=== PATIENT | female | born 1960 | race Caucasian/White ===

== ENCOUNTER 2019-09-23 04:32 | Inpatient (IN) ==
[2019-09-23] MEDS ORDERED: ONDANSETRON HCL/PF 2 MG/ML VIAL IV ONE ×2 (04:42→04:43)
--- NOTE | 2019-09-23 04:47 | ERNOTE ---
ER Female HPI Stated Complaint: uti Presenting Symptoms: other - weakness Time Seen by Provider: 09/23/19 04:37 Source: patient Exam Limitations: no limitations Immunizations: IMMUNIZATION HX Immunizations Up to Date Yes History of Influenza Vaccine Yes Hx Pneumococcal Vaccination No Allergies/Adverse Reactions: Allergies codeine Allergy (Verified 09/23/19 08:06) Hives morphine Allergy (Verified 09/23/19 08:06) Hives Home Medications: HOME MEDICATIONS Ciprofloxacin HCl [Cipro] 500 mg PO BID #27 tab 03/20/19 [Last Taken 09/22/19] Aspirin [[place] Aspirin EC] 81 mg PO DAILY 09/23/19 [Last Taken 09/22/19] Atorvastatin Calcium [Lipitor] 20 mg PO HS 09/23/19 [Last Taken 09/22/19] Insulin Glargine,Hum.rec.anlog [Lantus] 26 units SC HS 09/23/19 [Last Taken 09/22/19] metFORMIN HCL [Metformin HCl] 1,000 mg PO BID 09/23/19 [Last Taken 09/22/19] - History of Present Illness Narrative: Patient awoke this morning feeling hot she states her took her temperature and it was "102 something". She recently was treated with Keflex for a UTI and worsened after antibiotics ended. She saw her PCP again and started Cipro yesterday only getting in one dose last night Timing: Present: constant Quality: Present: moderate Activities at Onset: Present: sleep Prior Abdominal Problems: Present: similar symptoms Prior Treatment: Present: recently seen, treated by physician, currently on antibiotics Review of Systems - Review of Systems Constitutional: Present: See HPI, recent illness, fever, fatigue ENT: Absent: nose congestion, nasal drainage Respiratory: Absent: shortness of breath Cardiology: Absent: chest pain Gastrointestinal/Abdominal: Present: nausea Genitourinary: Present: frequency, dysuria Skin: Absent: rash Endocrine: Present: excessive sweating Medical History (Last Reviewed 09/23/19 @ 06:21 by Davion Shraif DO) Diabetes type 2, controlled On Lantus Hyperlipidemia Myocardial infarction Urinary tract infection Surgical History: Surgical History (Last Reviewed 09/23/19 @ 06:21 by Davion Sharif DO) H/O heart artery stent 5 cardiac stents History of cholecystectomy Family History: Family History (Last Reviewed 09/23/19 @ 06:21 by Davion Sharif DO) Mother Myocardial infarction Breast cancer Social History: (Last Reviewed 09/24/19 @ 02:14 by Davion Sharif DO) Social History: Marital status: Tobacco: Smoking Status: Never smoker Alcohol: alcohol intake: never Substance Use: substance use type: does not use Physical Exam - Physical Exam General Appearance: Present: wd/wn, alert, mild distress Head Exam: Present: normal inspection, no evidence of injury Neck: Present: normal inspection, nontender Respiratory: Present: no respiratory distress, no accessory muscle use, chest nontender, lungs clear Cardiovascular/Chest: Present: regular rate, rhythm, no murmur Gastrointestinal/Abdominal: Present: normal bowel sounds, nontender, nondistended, soft Neurological Exam: Present: alert, oriented, normal mood/affect Skin Exam: Present: normal color, warm/dry Lymphatic Exam: Present: no adenopathy Progress - Results and Orders Patient's Lab Results:: I have reviewed the patient's lab results. Results and Orders: Laboratory Tests 09/23/19 09/23/19 09/23/19 05:05 05:05 05:05 WBC 12.2 H Hgb 10.9 L Hct 34.9 L Plt Count 228 Neutrophils % 86.8 H Sodium 138 Potassium 4.1 Chloride 102 Carbon Dioxide 21.8 L Anion Gap 18.3 H Creatinine 1.11 Est GFR (Non-Af Amer) 54 L Random Glucose 165 H Lactic Acid, Venous 3.0 H* Calcium 9.2 Total Bilirubin 0.9 AST 20 ALT 23 Troponin I Less than 0.017 - Vital Signs Patient's Vital Signs:: I have reviewed the patient's vital signs. Vital Signs: Vital Signs 09/23/19 04:36 Temperature 37.6 C Pulse Rate 62 Respiratory Rate 12 Blood Pressure 111/49 O2 Sat by Pulse Oximetry 98 - EKG EKG #1 EKG: NSR EKG read: Interp. by me - Progress/Reassessment Chief Complaint: Genitourinary Problem Progress:: Improved Progress Note-Subjective: 09/23/19 06:[address] Ross she agrees with admission. Departure Clinical Impression: Pyelonephritis - Departure Disposition: Still a patient Condition: Fair
[2019-09-23 05:10] LABS: Hematocrit 34.9 % (37.0-47.0); Hemoglobin 10.9 gm/dL (12.5-16.0); Mean Cell Volume 89.5 fl (78-100); Mean Corpuscular Hemoglobin 27.9 pg (27-31); Mean Corpuscular Hgb Conc 31.2 g/dl (32-36); Mean Platelet Volume 9.9 fl (8-12.5); Neutrophil # 10.6 K/mm3 (1.3-6.0); Neutrophil % 86.8 % (42-75.0); Platelet Count 228 K/mm3 (150-450); Red Cell Distribution Width 13.1 % (11.5-14.0); White Blood Count 12.2 K/mm3 (4.0-10.5)
[2019-09-23 05:28] LABS: ALT 23 U/L (19-67); AST 20 U/L (0-48); Albumin * 3.5 gm/dl (3.4-5.0); Alkaline Phosphatase * 103 U/L (50-170); Anion Gap 18.3 mmol/L (6.8-13.8); BUN/Creatinine Ratio 20.7 (9.0-21.6); Bilirubin, Total 0.9 mg/dL (0.0-1.1); Blood Urea Nitrogen 23 mg/dL (3-23); Ca. Corrected For Albumin 9.3 mg/dL (8.4-10.2); Calcium * 9.2 mg/dL (7.9-10.9); Carbon Dioxide 21.8 mmol/L (24-32.6); Chloride 102 mmol/L (97-106); Glucose * 165 mg/dL (70-110); Potassium 4.1 mmol/L (3.4-4.6); Sodium 138 mmol/L (132-142); Total Protein 8.1 gm/dL (6.2-8.2); Troponin I Less than 0.017 ng/mL (0.00-0.10)
[2019-09-23] MEDS ORDERED: NORMAL SALINE 1,000 ML IV ONE (05:33)
[2019-09-23] MEDS: CIPROFLOXACIN IN 5 % DEXTROSE 400 MG/200 ML BAG IV SCH ×2 (06:48→18:46)
[2019-09-23 06:55] LABS: Urine Appearance Cloudy (CLEAR); Urine Bacteria 3+; Urine Bilirubin Negative (NEGATIVE); Urine Blood 250 /ul (NEGATIVE); Urine Color Yellow; Urine Ketone 5 mg/dL (NEGATIVE); Urine Nitrite Positive (NEGATIVE); Urine Protein 30 mg/dL (NEGATIVE); Urine Specific Gravity >=1.030 SP.GR. (1.005-1.010); Urine Urobilinogen Normal (NORMAL); Urine WBC >50 /hpf (0-5)
[2019-09-23] MEDS: ASPIRIN 81 MG TABLET.DR PO SCH (09:27)
[2019-09-23] MEDS: NORMAL SALINE 1,000 ML IV PRN ×3 (09:27→21:11)
[2019-09-23] MEDS: GABAPENTIN 100 MG CAPSULE PO SCH ×2 (09:27→21:28)
[2019-09-23 09:54] LABS: Urine Bilirubin Negative (NEGATIVE); Urine Blood 25 /ul (NEGATIVE); Urine Ketone Negative (NEGATIVE); Urine Protein 30 mg/dL (NEGATIVE); Urine Specific Gravity >=1.030 SP.GR. (1.005-1.010); Urine Urobilinogen Normal (NORMAL); Urine pH 5.5 pH (5.0-7.0)
--- NOTE | 2019-09-23 09:58 | HP ---
Chief Complaint - Chief Complaint Date of Service: 09/23/19 Time of Service: 08:40 Chief Complaint: Frequent urination, pain with urination and weakness History of Present Illness: 59-year-old female with a past medical history of diabetes mellitus type 2 on insulin, hyperlipidemia, myocardial infarct, and peripheral neuropathy, UTI presents from home with complaints of pain with urination, frequent urination and weakness. Symptoms began about 10 days ago when she was seen by her primary care provider. She was started on antibiotics for 7 days. She states symptoms resolved but then started again yesterday. She contacted her primary care provider and was started on a different antibiotic, ciprofloxacin. Overnight she woke up to use the bathroom and felt weak, her got up to help her and she passed out on the floor. EMS was called and she was brought to the emergency department. On presentation she was found to have a fever of 38.2, tachycardia in the low 100s, leukocytosis of 12,000, lactic acid of 3 and p ositive UA. She was started on IV ciprofloxacin and IV fluids. She was admitted for pyelonephritis. Medical History (Last Updated 09/23/19 @ 08:27 by Bertha Brennan RN) Diabetes type 2, controlled On Lantus Hyperlipidemia Myocardial infarction Neuropathy Urinary tract infection Surgical History: Surgical History (Last Updated 09/23/19 @ 08:07 by Bertha Brennan RN) H/O heart artery stent 5 cardiac stents History of cholecystectomy Hx of cataract surgery Family History: Family History (Last Reviewed 09/23/19 @ 08:07 by Bertha Brennan RN) Mother Breast cancer Myocardial infarction Social History: (Last Updated 09/23/19 @ 08:09 by Bertha Brennan RN) Social History: Marital status: Tobacco: Smoking Status: Never smoker Alcohol: alcohol intake: never Substance Use: substance use type: does not use Review Of Systems (GEN) - Review of Systems Generalized/Overall Review: Present: Fever Respiratory: Absent: Shortness of Breath Cardiac: Absent: Chest Pain Abdominal: Present: Abdominal Pain - Suprapubic Genitourinary: Present: Burning, Frequency, Incontinent - She had 1 episode of urinary incontinence early this morning Neurological: Present: Parasthesia - Left foot Misc: All systems neg except as marked Immunizations: IMMUNIZATION HX Immunizations Up to Date Yes History of Influenza Vaccine Yes Hx Pneumococcal Vaccination No Allergies/Adverse Reactions: Allergies Allergy/AdvReac Type Severity Reaction Status Date / Time codeine Allergy Hives Verified 09/23/19 08:06 morphine Allergy Hives Verified 09/23/19 08:06 Home Medications: HOME MEDICATIONS Ciprofloxacin HCl [Cipro] 500 mg PO BID #27 tab 03/20/19 [Last Taken 09/22/19] Aspirin [[place] Aspirin EC] 81 mg PO DAILY 09/23/19 [Last Taken 09/22/19] Atorvastatin Calcium [Lipitor] 20 mg PO HS 09/23/19 [Last Taken 09/22/19] Insulin Glargine,Hum.rec.anlog [Lantus] 26 units SC HS 09/23/19 [Last Taken 09/22/19] metFORMIN HCL [Metformin HCl] 1,000 mg PO BID 09/23/19 [Last Taken 09/22/19] Exam - Exam Vital Signs: Vital Signs - Last Taken Temp 38 C 09/23/19 08:09 Pulse 105 H 09/23/19 08:09 Resp 18 09/23/19 08:09 BP 130/70 09/23/19 08:09 Pulse Ox 95 09/23/19 08:09 Constitutional: Present: Alert, Cooperative, Well developed, Well nourished, No distress, Middle aged, Obese ENT Exam: Present: hearing grossly normal, moist mucous membranes Eye Exam: bilateral eye: normal inspection, PERRL, EOMI Neck: Present: non-tender. Absent: lymphadenopathy (R), lymphadenopathy (L) Back Exam: Present: normal inspection, no CVA tenderness, no vertebral tenderness Respiratory: Present: lungs clear, no respiratory distress, no accessory muscle use, No wheezing. Absent: crackles, rhonchi Cardiovascular/Chest: Present: normal peripheral pulses, no edema, no murmur, tachycardia Peripheral Pulses: dorsalis-pedis (R): 1+, dorsalis-pedis (L): 1+ Abdomen: Present: Normal bowel sounds, soft, obese, suprapubic tenderness Extremity: Present: no pedal edema Skin Exam: Present: normal color, warm/dry Neurologic: Present: alert, normal mood/affect Appearance: Present: appropriate appearance, appropriate insight Eye contact: Present: cooperative Thoughts: Present: normal thought pattern, normal mood /affect Diagnostic Studies: Abnormal Lab Results 09/23/19 09/23/19 09/23/19 Range/Units 05:05 05:05 05:05 WBC 12.2 H (4.0-10.5) K/mm3 RBC 3.90 L (4.2-5.4) M/mm3 Hgb 10.9 L (12.5-16.0) gm/dL Hct 34.9 L (37.0-47.0) % MCHC 31.2 L (32-36) g/dl Immature Gran # (Auto) 0.04 H (0.000-0.0310) K/mm3 Neutrophils % 86.8 H (42-75.0) % Lymphocytes % 7.1 L (20-51) % Neutrophils # 10.6 H (1.3-6.0) K/mm3 Lymphocytes # 0.87 L (1.5-3.5) k/mm3 Carbon Dioxide 21.8 L (24-32.6) mmol/L Anion Gap 18.3 H (6.8-13.8) mmol/L Est GFR (Non-Af Amer) 54 L (60-130) mL/min Random Glucose 165 H (70-110) mg/dL Lactic Acid, Venous 3.0 H* (0.4-2.0) mmol/L Urine Protein (NEGATIVE) mg/dL Urine Blood (NEGATIVE) /ul Urine Nitrate (NEGATIVE) Prot Sulfosalicylic Acd (0) mg/dL Ur Leukocyte Esterase (NEGATIVE) /ul Urine RBC (0-5) /hpf Urine WBC (0-5) /hpf Ur Epithelial Cells (0-5) /hpf Urine Bacteria (NONE) 09/23/19 09/23/19 Range/Units 06:45 08:30 WBC (4.0-10.5) K/mm3 RBC (4.2-5.4) M/mm3 Hgb (12.5-16.0) gm/dL Hct (37.0-47.0) % MCHC (32-36) g/dl Immature Gran # (Auto) (0.000-0.0310) K/mm3 Neutrophils % (42-75.0) % Lymphocytes % (20-51) % Neutrophils # (1.3-6.0) K/mm3 Lymphocytes # (1.5-3.5) k/mm3 Carbon Dioxide (24-32.6) mmol/L Anion Gap (6.8-13.8) mmol/L Est GFR (Non-Af Amer) (60-130) mL/min Random Glucose (70-110) mg/dL Lactic Acid, Venous 3.4 H* (0.4-2.0) mmol/L Urine Protein 30 H (NEGATIVE) mg/dL Urine Blood 250 H (NEGATIVE) /ul Urine Nitrate Positive H (NEGATIVE) Prot Sulfosalicylic Acd 4+ H (0) mg/dL Ur Leukocyte Esterase 500 H (NEGATIVE) /ul Urine RBC 10-25 H (0-5) /hpf Urine WBC >50 H (0-5) /hpf Ur Epithelial Cells 10-25 H (0-5) /hpf Urine Bacteria 3+ H (NONE) Laboratory Results WBC 12.2 K/mm3 (4.0-10.5) H 09/23/19 05:05 RBC 3.90 M/mm3 (4.2-5.4) L 09/23/19 05:05 Hgb 10.9 gm/dL (12.5-16.0) L 09/23/19 05:05 Hct 34.9 % (37.0-47.0) L 09/23/19 05:05 MCV 89.5 fl (78-100) 09/23/19 05:05 MCH 27.9 pg (27-31) 09/23/19 05:05 MCHC 31.2 g/dl (32-36) L 09/23/19 05:05 RDW 13.1 % (11.5-14.0) 09/23/19 05:05 Plt Count 228 K/mm3 (150-450) 09/23/19 05:05 MPV 9.9 fl (8-12.5) 09/23/19 05:05 Immature Gran % (Auto) 0.30 % (0.001-0.429) 09/23/19 05:05 Immature Gran # (Auto) 0.04 K/mm3 (0.000-0.0310) H 09/23/19 05:05 Neutrophils % 86.8 % (42-75.0) H 09/23/19 05:05 Lymphocytes % 7.1 % (20-51) L 09/23/19 05:05 Monocytes % 4.7 % (0.0-9) 09/23/19 05:05 Eosinophils % 0.8 % (0.0-3.0) 09/23/19 05:05 Basophils % 0.3 % (0.0-1.0) 09/23/19 05:05 Nucleated RBC % 0.0 k/mm3 (0-1) 09/23/19 05:05 Neutrophils # 10.6 K/mm3 (1.3-6.0) H 09/23/19 05:05 Lymphocytes # 0.87 k/mm3 (1.5-3.5) L 09/23/19 05:05 Monocytes # 0.6 k/mm3 (0.0-1.0) 09/23/19 05:05 Eosinophils # 0.1 k/mm3 (0.0-0.7) 09/23/19 05:05 Absolute Basophils 0.0 k/mm3 (0.0-0.1) 09/23/19 05:05 Sodium 138 mmol/L (132-142) 09/23/19 05:05 Plasma Sodium 139 mmol/L (130-142) 09/23/19 05:05 Potassium 4.1 mmol/L (3.4-4.6) 09/23/19 05:05 Chloride 102 mmol/L (97-106) 09/23/19 05:05 Carbon Dioxide 21.8 mmol/L (24-32.6) L 09/23/19 05:05 Anion Gap 18.3 mmol/L (6.8-13.8) H 09/23/19 05:05 BUN 23 mg/dL (3-23) 09/23/19 05:05 Creatinine 1.11 mg/dL (0.4-1.4) 09/23/19 05:05 Est GFR (Non-Af Amer) 54 mL/min (60-130) L 09/23/19 05:05 BUN/Creatinine Ratio 20.7 (9.0-21.6) 09/23/19 05:05 Random Glucose 165 mg/dL (70-110) H 09/23/19 05:05 Lactic Acid, Venous 3.4 mmol/L (0.4-2.0) H* 09/23/19 08:30 Calcium 9.2 mg/dL (7.9-10.9) 09/23/19 05:05 Calcium Adj for Albumin 9.3 mg/dL (8.4-10.2) 09/23/19 05:05 Total Bilirubin 0.9 mg/dL (0.0-1.1) 09/23/19 05:05 AST 20 U/L (0-48) 09/23/19 05:05 ALT 23 U/L (19-67) 09/23/19 05:05 Alkaline Phosphatase 103 U/L (50-170) 09/23/19 05:05 Troponin I Less than 0.017 ng/mL (0.00-0.10) 09/23/19 05:05 Total Protein 8.1 gm/dL (6.2-8.2) 09/23/19 05:05 Albumin 3.5 gm/dl (3.4-5.0) 09/23/19 05:05 Urine Color Yellow 09/23/19 06:45 Urine Appearance Cloudy (CLEAR) 09/23/19 06:45 Urine pH 5.0 pH (5.0-7.0) 09/23/19 06:45 Ur Specific [place] >=1.030 SP.GR. (1.005-1.010) 09/23/19 06:45 Urine Protein 30 mg/dL (NEGATIVE) H 09/23/19 06:45 Urine Glucose (UA) Negative mg/dL (NEGATIVE) 09/23/19 06:45 Urine Ketones 5 mg/dL (NEGATIVE) 09/23/19 06:45 Urine Blood 250 /ul (NEGATIVE) H 09/23/19 06:45 Urine Nitrate Positive (NEGATIVE) H 09/23/19 06:45 Urine Bilirubin Negative mg/dl (NEGATIVE) 09/23/19 06:45 Prot Sulfosalicylic Acd 4+ mg/dL (0) H 09/23/19 06:45 Urine Urobilinogen Normal EU/dl (NORMAL) 09/23/19 06:45 Ur Leukocyte Esterase 500 /ul (NEGATIVE) H 09/23/19 06:45 Urine RBC 10-25 /hpf (0-5) H 09/23/19 06:45 Urine WBC >50 /hpf (0-5) H 09/23/19 06:45 Ur Epithelial Cells 10-25 /hpf (0-5) H 09/23/19 06:45 Urine Bacteria 3+ (NONE) H 09/23/19 06:45 Urine Culture Comments Culture to follow 09/23/19 06:45 Assessment/Plan - Narrative Narrative: 59-year-old female with a past medical history of diabetes mellitus type 2 on insulin, hyperlipidemia, myocardial infarct, and peripheral neuropathy, UTI presents from home with complaints of pain with urination, frequent urination and weakness. On presentation she was found to have a fever of 38.2, tachycardia in the low 100s, leukocytosis of 12,000, lactic acid of 3 and positive UA. She was started on IV ciprofloxacin and IV fluids. She was admitted for pyelonephritis. Her lactic acid has gone up from 3-3.4 this morning. She only received 1 bag of IV fluids in the ER so I will resume IV fluids. Plan #1 continue with ciprofloxacin 400 mg IV every 12 hours. Awaiting urine culture results #2 I will restart the IV fluids with normal saline at 150 cc/h #3 I will start her on gabapentin 100 mg twice a day for her left foot neuropathy #4 resume home medications for comorbidities #5 CBC and CMP in the morning #6 DVT prophylaxis with Lovenox #7 start gabapentin 100 mg twice a day for her peripheral neuropathy - Assessment/Plan (1) Pyelonephritis Problem: Acute (2) Diabetes mellitus type 2 in obese Problem: Acute (3) Peripheral neuropathy Problem: Acute (4) CAD (coronary artery disease) Problem: Acute (5) Hyperlipidemia Problem: Acute (6) Sepsis Problem: Acute
[2019-09-23 10:15] LABS: Urine Color Yellow; Urine Nitrite Positive (NEGATIVE)
[2019-09-23 10:16] LABS: Urine Appearance Clear (CLEAR); Urine Bacteria 2+; Urine RBC 0-5 /hpf (0-5); Urine WBC 25-50 /hpf (0-5)
[2019-09-23] MEDS: ENOXAPARIN SODIUM 40 MG/0.4 ML SYRG SC SCH (10:44)
[2019-09-23] MEDS: ACETAMINOPHEN 325 MG TABLET PO PRN ×2 (13:20→19:31)
[2019-09-23] MEDS: INSULIN GLARGINE,HUM.REC.ANLOG 100 UNITS/ML VIAL SC SCH (21:25)
[2019-09-23] MEDS: ROSUVASTATIN CALCIUM 10 MG TABLET PO SCH (21:28)
[2019-09-24] MEDS: NORMAL SALINE 1,000 ML IV PRN ×2 (01:26→05:45)
[2019-09-24 06:45] LABS: Hematocrit 29.9 % (37.0-47.0); Hemoglobin 9.3 gm/dL (12.5-16.0); Mean Cell Volume 90.1 fl (78-100); Mean Corpuscular Hgb Conc 31.1 g/dl (32-36); Mean Platelet Volume 9.5 fl (8-12.5); Neutrophil # 3.8 K/mm3 (1.3-6.0); Neutrophil % 68.8 % (42-75.0); Platelet Count 180 K/mm3 (150-450); Red Blood Count 3.32 M/mm3 (4.2-5.4); Red Cell Distribution Width 13.1 % (11.5-14.0); White Blood Count 5.6 K/mm3 (4.0-10.5)
[2019-09-24] MEDS: CIPROFLOXACIN IN 5 % DEXTROSE 400 MG/200 ML BAG IV SCH (06:46)
[2019-09-24 07:08] LABS: Albumin * 2.8 gm/dl (3.4-5.0); Anion Gap 14.1 mmol/L (6.8-13.8); BUN/Creatinine Ratio 18.8 (9.0-21.6); Bilirubin, Total 0.4 mg/dL (0.0-1.1); Ca. Corrected For Albumin 8.4 mg/dL (8.4-10.2); Calcium * 7.8 mg/dL (7.9-10.9); Carbon Dioxide 22.8 mmol/L (24-32.6); Potassium 3.9 mmol/L (3.4-4.6); Total Protein 6.8 gm/dL (6.2-8.2)
[2019-09-24] MEDS: ENOXAPARIN SODIUM 40 MG/0.4 ML SYRG SC SCH (09:00)
[2019-09-24] MEDS: GABAPENTIN 100 MG CAPSULE PO SCH ×2 (09:01→21:08)
[2019-09-24] MEDS: ASPIRIN 81 MG TABLET.DR PO SCH (09:01)
--- NOTE | 2019-09-24 11:19 | PN ---
Subjective - Date and Time Seen Date: 09/24/19 Time: 09:12 Subjective Narrative: She states she feels much better today. Denies any fevers. Denies pain with urination. She is tolerating her diet. Denies pain in her legs. She feels stronger today and is ambulating Objective - Review of Systems Generalized/Overall Review: Denies: Chills, Fever Respiratory: Denies: Shortness of Breath Cardiac: Denies: Chest Pain Abdominal: Denies: Abdominal Pain Genitourinary Symptoms: Denies: Dysuria Musculoskeletal Complaints: Denies: Joint Pain Neurological: Denies: Parasthesia - Denies paresthesias in her feet Misc: All systems neg except as marked - Vitals Vitals: Last Vital Signs Temp 37.2 C 09/24/19 06:42 Pulse 82 09/24/19 06:42 Resp 16 09/24/19 06:42 BP 129/68 09/24/19 06:42 Pulse Ox 94 09/24/19 06:42 - Abnormal Lab Findings Abnormal Lab Findings: Abnormal Lab Results 09/23/19 09/24/19 09/24/19 Range/Units 14:39 06:00 06:00 RBC 3.32 L (4.2-5.4) M/mm3 Hgb 9.3 L (12.5-16.0) gm/dL Hct 29.9 L (37.0-47.0) % MCHC 31.1 L (32-36) g/dl Lymphocytes # 1.20 L (1.5-3.5) k/mm3 Chloride 108 H (97-106) mmol/L Carbon Dioxide 22.8 L (24-32.6) mmol/L Anion Gap 14.1 H (6.8-13.8) mmol/L Random Glucose 122 H (70-110) mg/dL Lactic Acid, Venous 3.3 H* (0.4-2.0) mmol/L Calcium 7.8 L (7.9-10.9) mg/dL Albumin 2.8 L (3.4-5.0) gm/dl - Exam Constitutional: Present: Alert, Cooperative, Well developed, Well nourished, Middle aged, Obese ENT Exam: Present: hearing grossly normal Neck: Present: non-tender, supple. Absent: lymphadenopathy (R), lymphadenopathy (L) Respiratory: Present: lungs clear, no respiratory distress, no accessory muscle use, No wheezing. Absent: crackles, rhonchi Cardiovascular/Chest: Present: normal peripheral pulses, regular rate, rhythm, no edema, no murmur Abdomen: Present: Normal bowel sounds, soft, nontender Extremity: Present: no pedal edema Skin Exam: Present: normal color, warm/dry Neurologic: Present: alert, normal mood/affect Appearance: Present: appropriate appearance, appropriate insight Eye contact: Present: cooperative Thoughts: Present: normal thought pattern, normal mood /affect Assessment/Plan Plan Narrative: 59-year-old female with a past medical history of diabetes mellitus type 2 on insulin, hyperlipidemia, myocardial infarct, and peripheral neuropathy, UTI presents from home with complaints of pain with urination, frequent urination and weakness. On presentation she was found to have a fever of 38.2, tachyc ardia in the low 100s, leukocytosis of 12,000, lactic acid of 3 and positive UA. She was started on IV ciprofloxacin and IV fluids. She was admitted for pyelonephritis. Her lactic acid has normalized this morning. Preliminary urine cultures show no growth. I will transition her to ciprofloxacin 500 mg orally twice daily. Cultures may be negative because of treatment with antibiotics prior to obtaining the urine sample. Plan #1 continue with ciprofloxacin day 2. I will transition her to ciprofloxacin 500 mg orally twice daily. Discontinue IV ciprofloxacin. #2 I will restart stop IV fluids #3 Continue with gabapentin 100 mg twice a day for her left foot neuropathy #4 Continue with home medications for comorbidities #5 CBC and CMP in the morning #6 DVT prophylaxis with Lovenox - Problems/Diagnosis (1) Pyelonephritis Problem: Acute (2) Diabetes mellitus type 2 in obese Problem: Acute (3) Peripheral neuropathy Problem: Acute (4) CAD (coronary artery disease) Problem: Acute (5) Hyperlipidemia Problem: Acute (6) Sepsis Problem: Acute
[2019-09-24] MEDS: CIPROFLOXACIN HCL 500 MG TABLET PO SCH (21:08)
[2019-09-24] MEDS: ROSUVASTATIN CALCIUM 10 MG TABLET PO SCH (21:08)
[2019-09-24] MEDS: INSULIN GLARGINE,HUM.REC.ANLOG 100 UNITS/ML VIAL SC SCH (21:08)
[2019-09-25] MEDS: ACETAMINOPHEN 325 MG TABLET PO PRN (02:48)
[2019-09-25 06:32] LABS: Hematocrit 29.8 % (37.0-47.0); Hemoglobin 9.4 gm/dL (12.5-16.0); Mean Cell Volume 88.4 fl (78-100); Mean Corpuscular Hemoglobin 27.9 pg (27-31); Mean Corpuscular Hgb Conc 31.5 g/dl (32-36); Mean Platelet Volume 9.6 fl (8-12.5); Neutrophil # 2.8 K/mm3 (1.3-6.0); Platelet Count 194 K/mm3 (150-450); Red Blood Count 3.37 M/mm3 (4.2-5.4); White Blood Count 5.8 K/mm3 (4.0-10.5)
[2019-09-25 06:46] LABS: Anion Gap 11.9 mmol/L (6.8-13.8); BUN/Creatinine Ratio 15.3 (9.0-21.6); Bilirubin, Total 0.3 mg/dL (0.0-1.1); Ca. Corrected For Albumin 9.1 mg/dL (8.4-10.2); Calcium * 8.6 mg/dL (7.9-10.9); Carbon Dioxide 25.9 mmol/L (24-32.6); Potassium 3.8 mmol/L (3.4-4.6); Total Protein 7.2 gm/dL (6.2-8.2)
[2019-09-25] MEDS: GABAPENTIN 100 MG CAPSULE PO SCH (08:26)
[2019-09-25] MEDS: ASPIRIN 81 MG TABLET.DR PO SCH (08:26)
[2019-09-25] MEDS: CIPROFLOXACIN HCL 500 MG TABLET PO SCH (08:27)
--- NOTE | 2019-09-25 09:32 | DS ---
(1) Pyelonephritis Problem: Acute (2) Diabetes mellitus type 2 in obese Problem: Chronic (3) Peripheral neuropathy Problem: Acute (4) CAD (coronary artery disease) Problem: Chronic (5) Hyperlipidemia Problem: Chronic (6) Sepsis Problem: Resolved Hospital Course: 59-year-old female with a past medical history of diabetes mellitus type 2 on insulin, hyperlipidemia, myocardial infarct, and peripheral neuropathy, UTI presents from home with complaints of pain with urination, frequent urination and weakness. On presentation she was found to have a fever of 38.2, tachycardia in the low 100s, leukocytosis of 12,000, lactic acid of 3 and positive UA. She was started on IV ciprofloxacin and IV fluids. She was admitted for pyelonephritis. She improved during hospitalization. She defervesced, tolerated diet and had no more pain with urination or back pain. Her lactic acid has normalized with IV fluids. Final urine cultures show no growth. Cultures may be negative because of treatment with antibiotics prior to obtaining the urine sample. She will need to complete a course of ciprofloxacin 500 mg twice a day for total of 7 days. She will need to take ciprofloxacin for 5 more days. She states she already has the medication at home so does not need a refill. She also had complained of paresthesias in her feet. She was started on gabapentin 100 mg twice a day with significant improvement of her pain. She is aware that gabapentin can cause sleepiness or dizziness and she should be very careful while on this medication. I will send her home with a temporary prescription for gabapentin and she will follow-up with her primary care provider for refills. She does need to see her primary care provider in 1-2 weeks of discharge. Procedures Performed: none Results and Findings: Pending Mircobiology Results 09/23/19 06:40 Blood Blood Culture - Preliminary NO GROWTH AFTER 48 HOURS 09/23/19 05:25 Blood Blood Culture - Preliminary NO GROWTH AFTER 48 HOURS Lab Pending Results 09/23/19 05:05: WBC 12.2 H, RBC 3.90 L, Hgb 10.9 L, Hct 34.9 L, MCV 89.5, MCH 27.9, MCHC 31.2 L, RDW 13.1, Plt Count 228, MPV 9.9, Immature Gran % (Auto) 0.30, Immature Gran # (Auto) 0.04 H, Neutrophils % 86.8 H, Lymphocytes % 7.1 L, Monocytes % 4.7, Eosinophils % 0.8, Basophils % 0.3, Nucleated RBC % 0.0, Neutrophils # 10.6 H, Lymphocytes # 0.87 L, Monocytes # 0.6, Eosinophils # 0.1, Absolute Basophils 0.0 09/23/19 05:05: Sodium 138, Plasma Sodium 139, Potassium 4.1, Chloride 102, Carbon Dioxide 21.8 L, Anion Gap 18.3 H, BUN 23, Creatinine 1.11, Est GFR (Non- Af Amer) 54 L, BUN/Creatinine Ratio 20.7, Random Glucose 165 H, Calcium 9.2, Calcium Adj for Albumin 9.3, Total Bilirubin 0.9, AST 20, ALT 23, Alkaline Phosphatase 103, Troponin I Less than 0.017, Total Protein 8.1, Albumin 3.5 09/23/19 05:05: Lactic Acid, Venous 3.0 H* 09/23/19 06:45: Urine Color Yellow, Urine Appearance Cloudy, Urine pH 5.0, Ur Specific [place] >=1.030, Urine Protein 30 H, Urine Glucose (UA) Negative, Urine Ketones 5, Urine Blood 250 H, Urine Nitrate Positive H, Urine Bilirubin Negative, Prot Sulfosalicylic Acd 4+ H, Urine Urobilinogen Normal, Ur Leukocyte Esterase 500 H, Urine RBC 10-25 H, Urine WBC >50 H, Ur Epithelial Cells 10-25 H, Urine Bacteria 3+ H, Urine Culture Comments Culture to follow 09/23/19 08:30: Lactic Acid, Venous 3.4 H* 09/23/19 09:40: Urine Color Yellow, Urine Appearance Clear, Urine pH 5.5, Ur Specific [place] >=1.030, Urine Protein 30 H, Urine Glucose (UA) 250 H, Urine Ketones Negative, Urine Blood 25 H, Urine Nitrate Positive H, Urine Bilirubin Negative, Prot Sulfosalicylic Acd 2+ H, Urine Urobilinogen Normal, Ur Leukocyte Esterase 75 H, Urine RBC 0-5, Urine WBC 25-50 H, Ur Epithelial Cells Trace, Urine Bacteria 2+ H, Urine Culture Comments Culture to follow 09/23/19 14:39: Lactic Acid, Venous 3.3 H* 09/24/19 06:00: WBC 5.6 D, RBC 3.32 L, Hgb 9.3 L, Hct 29.9 L, MCV 90.1, MCH 28.0, MCHC 31.1 L, RDW 13.1, Plt Count 180, MPV 9.5, Immature Gran % (Auto) 0.40, Immature Gran # (Auto) 0.02, Neutrophils % 68.8, Lymphocytes % 21.5, Monocytes % 6.6, Eosinophils % 2.2, Basophils % 0.5, Nucleated RBC % 0.0, Neutrophils # 3.8, Lymphocytes # 1.20 L, Monocytes # 0.4, Eosinophils # 0.1, Absolute Basophils 0.0 09/24/19 06:00: Sodium 141, Plasma Sodium 141, Potassium 3.9, Chloride 108 H, Carbon Dioxide 22.8 L, Anion Gap 14.1 H, BUN 16, Creatinine 0.85, Est GFR (Non- Af Amer) 73 D, BUN/Creatinine Ratio 18.8, Random Glucose 122 H, Calcium 7.8 L, Calcium Adj for Albumin 8.4, Total Bilirubin 0.4, AST 22, ALT 27, Alkaline Phosphatase 74, Total Protein 6.8, Albumin 2.8 L 09/24/19 06:00: Lactic Acid, Venous 0.9 09/25/19 06:26: WBC 5.8, RBC 3.37 L, Hgb 9.4 L, Hct 29.8 L, MCV 88.4, MCH 27.9, MCHC 31.5 L, RDW 13.0, Plt Count 194, MPV 9.6, Immature Gran % (Auto) 0.50 H, Immature Gran # (Auto) 0.03, Neutrophils % 48.0, Lymphocytes % 34.5, Monocytes % 9.7 H, Eosinophils % 6.8 H, Basophils % 0.5, Nucleated RBC % 0.0, Neutrophils # 2.8, Lymphocytes # 1.99, Monocytes # 0.6, Eosinophils # 0.4, Absolute Basophils 0.0 09/25/19 06:26: Sodium 141, Plasma Sodium 141, Potassium 3.8, Chloride 107 H, Carbon Dioxide 25.9, Anion Gap 11.9, BUN 13, Creatinine 0.85, Est GFR (Non-Af Amer) 73, BUN/Creatinine Ratio 15.3, Random Glucose 111 H, Calcium 8.6, Calcium Adj for Albumin 9.1, Total Bilirubin 0.3, AST 22, ALT 29, Alkaline Phosphatase 77, Total Protein 7.2, Albumin 3.0 L Discharge Location: Home Disposition: Home self-care Condition: Fair Discharge Activity: Activity as tolerated Discharge Diet: Consistent carbs Referrals: Pamela Obrien PAC [Primary Care Provider] - Prescriptions (Any new or edited meds): Gabapentin [Neurontin] 100 mg PO BID #28 cap Transmission Status: Pending to [place], [place] Complete Home Medications List: Complete Home Medication List: Ciprofloxacin HCl [Cipro] 500 mg PO BID #27 tab 03/20/19 Aspirin [[place] Aspirin EC] 81 mg PO DAILY 09/23/19 Atorvastatin Calcium [Lipitor] 20 mg PO HS 09/23/19 Insulin Glargine,Hum.rec.anlog [Lantus] 26 units SC HS 09/23/19 metFORMIN HCL [Metformin HCl] 1,000 mg PO BID 09/23/19 Gabapentin [Neurontin] 100 mg PO BID #28 cap 09/25/19
[2019-09-25 12:10] VITALS: BP 126/71
== END 2019-09-25 12:30 | disposition home or self-care (01) | DRG 872 ==
LOC: ER 04:32 → MS 06:20
PROVIDERS: ADMIT Internal Medicine; ATTEND Internal Medicine
DX: Z95.5 Presence of coronary angioplasty implant and graft; Z79.4 Long term (current) use of insulin; A41.9 Sepsis, unspecified organism; G62.9 Polyneuropathy, unspecified; Z87.440 Personal history of urinary (tract) infections; I25.2 Old myocardial infarction; N10 Acute pyelonephritis; E78.5 Hyperlipidemia, unspecified; I25.10 Atherosclerotic heart disease of native coronary artery without angina pectoris; E11.9 Type 2 diabetes mellitus without complications
CPT/HCPCS: 36415; 80053; 81001; 83605; 84484; 85025; 87040; 87086; 93005; 96361; 96365; 96375; 99284; 99285; J2405